=== PATIENT | female | born 1970 | race Caucasian/White ===

== ENCOUNTER → 2025-02-19 06:30 | Outpatient (REF) | payer BC, SELFPAY | LOC: HWRAD 06:30 | PROVIDERS: ATTENDING PHYSICIAN Internal Medicine Rheumatology; FAMILY PHYSICIAN Physician Assistant Medical | DX: M81.0 Age-related osteoporosis without current pathological fracture (principal); M85.89 Other specified disorders of bone density and structure, multiple sites; Z13.820 Encounter for screening for osteoporosis; Z79.52 Long term (current) use of systemic steroids | CPT/HCPCS: 77080; 77081 ==